=== PATIENT | male | born 1975 | race Caucasian/White ===

== ENCOUNTER 2016-09-30 06:28 | Emergency (ER) | payer MEDICAID ==
[~2016-09-30] VITALS: Ht 167.6 cm; Wt 82.6 kg
[2016-09-30 06:38] VITALS: Ht 167.6 cm; Wt 82.6 kg
[2016-09-30 07:49] LABS: ADD SCAN DIFF NO
[2016-09-30 07:55] LABS: BASOPHIL # 0.1 10^3/ul (0.0-0.1); BASOPHILS % 0.3 % (0.0-2.0); EOSINOPHILS # 0.2 10^3/ul (0.0-0.5); LYMPHOCYTES # 2.8 10^3/ul (0.8-2.9); LYMPHOCYTES % 18.3 % (15.0-51.0); MEAN CORPUSCULAR HEMOGLOBIN 31.6 pg (29.0-33.0); MEAN CORPUSCULAR HGB CONC 34.9 g/dl (32.0-37.0); MEAN CORPUSCULAR VOLUME 90.5 fl (82.0-101.0); MEAN PLATELET VOLUME 11.6 fl (7.4-10.4); MONOCYTE # 1.4 10^3/ul (0.3-0.9); NEUTROPHIL # 10.9 10^3/ul (1.6-7.5); NEUTROPHILS % 71.1 % (39.0-77.0); PLATELET COUNT 277 10^3/UL (140-415); RED BLOOD COUNT 4.75 10^6/ul (4.70-6.10); WHITE BLOOD COUNT 15.3 10^3/ul (4.8-10.8)
--- NOTE | 2016-09-30 07:56 | RADRPT ---
PROCEDURE: CT Abdomen and pelvis without contrast. CLINICAL INDICATION: Left flank pain TECHNIQUE: CT scan of the abdomen and pelvis with contrast was performed on a multidetector high-r esolution CT scan. . Coronal and sagittal reformatted images were obtained from the axial source i mages. Standard CT scan of the abdomen pelvis without contrast protocols were performed. The total exam CTDI equals 14.02 mGy and the total exam DLP equals in 65.53 mGy-cm. One or more of the following dose reduction techniques were used: - Automated exposure control. - Adjustment of the mA and/or kV according to patient size. Use of iterative reconstruction technique. COMPARISON: None FINDINGS: There is a 6 x 4 mm proximal left ureteral calculus resulting in moderate left hydroureter and mild left hydronephrosis. No other renal calcified calculi. No evidence of right hydronephrosis. No ev idence of intra renal masses bilaterally. The urinary bladder is contracted but otherwise unremarka ble. The prostate gland is mildly enlarged. The liver is mildly enlarged but no focal hepatic lesion s. The spleen, pancreas and adrenal glands are unremarkable. The gallbladder is unremarkable and t here is no evidence of biliary ductal dilation. The stomach, small bowel, large bowel and appendix a re unremarkable. Negative for intra-abdominal free fluid free air abscesses or lymphadenopathy. Th e lung bases are unremarkable. There are degenerative changes lower thoracic and lumbar spine. No acute osseous finding. No osteoblastic or osteolytic lesions. IMPRESSION: 1. 6 x 4 mm proximal left ureteral obstructing calculus resulting in moderate left proximal hydrour eter and mild left hydronephrosis. 2. No other calcified urinary calculi. Negative right obstructive uropathy. 3. Mild enlargement of the prostate gland. 4. Mild hepatomegaly without focal hepatic lesions. 5. No abdominal free air fluid abscesses or lymphadenopathy. RPTAT:AAJJ Physician [place] Date Time Electronically viewed and signed by Physician London on 09/30/2016 07:56 BM/
[2016-09-30] MEDS ORDERED: HYDR-906 PO (08:06)
[2016-09-30] MEDS ORDERED: TAMS-14 PO (08:06)
[2016-09-30] MEDS ORDERED: IBUP-1542 PO (08:06)
[2016-09-30 08:08] LABS: ADD UMIC YES; URINE BILIRUBIN (Dip) NEGATIVE (NEGATIVE); URINE BLOOD (Dip) 3+ (NEGATIVE); URINE COLOR LT. YELLOW (YELLOW); URINE GLUCOSE (Dip) NEGATIVE (NEGATIVE); URINE KETONES (Dip) NEGATIVE (NEGATIVE); URINE LEUKOCYTE ESTERASE (Dip) NEGATIVE (NEGATIVE); URINE NITRITE (Dip) NEGATIVE (NEGATIVE); URINE TOTAL PROTEIN (Dip) NEGATIVE (NEGATIVE); URINE UROBILINOGEN (Dip) 0.2 E.U./dL (0.1-1.0)
--- NOTE | 2016-09-30 08:13 | ERD ---
ER Documentation Chief Complaint Date/Time DATE: 09/30/16 TIME: 08:08 Chief Complaint INTERMITTENT LT FLANK PAIN X2 DAYS. TOOK TYLENOL [employer]ER AT 0500. HPI Patient is a 41-year-old male with past medical history of kidney stones (over 10 years ago) who presents to the emergency department with intermittent sided flank pain 2 days. Patient states that the pain is episodic in nature. Patient states that his pain is sharp and stabbing. The pain is localized to the left flank area. The pain does not radiate into his abdomen or his groin. Patient states his current pain level is a 7 out of 10. Patient last took Tylenol at 5 AM today. Patient denies any dysuria, urinary frequency, urgency or hematuria. Patient does report intermittent chills however he denies any fevers. Patient denies any chest pain, shortness of breath, nausea. Patient does admit to vomiting 1 today. No recent travel. No sick contacts. ROS All systems reviewed and are negative except as per history of present illness. Medications Home Meds Active Scripts Tamsulosin Hcl* (Flomax*) 0.4 Mg Cap.er.24h, 0.4 MG PO BID, #30 CAP Prov:LOLIS COTTRELL PA-C 09/30/16 Hydrocodone/Acetaminophen ([place] 5-325 Tablet) 1 Each Tablet, 1 TAB PO Q6H Y for PAIN, #10 TAB Prov:LOLIS COTTRELL PA-C 09/30/16 Ibuprofen* (Ibuprofen*) 600 Mg Tablet, 600 MG PO Q6, #20 TAB Prov:LOLIS COTTRELL PA-C 09/30/16 Allergies Allergies: Coded Allergies: No Known Allergy (Unverified , 09/30/16) PMhx/Soc Medical and Surgical Hx: pt denies Medical Hx, pt denies Surgical Hx Hx Miscellaneous Medical Probl: Yes (hx of kidney stones) Hx Alcohol Use: No Hx Substance Use: No Hx Tobacco Use: No Smoking Status: Never smoker Physical Exam Vitals Vital Signs Date Time Temp Pulse Resp B/P Pulse Ox O2 Delivery O2 Flow Rate FiO2 09/30/16 09:26 98.4 72 16 138/74 99 Room Air 09/30/16 06:38 98.4 91 16 152/87 97 Physical Exam GENERAL: Well-developed, well-nourished male. Appears in no acute distress. HEAD: Normocephalic, atraumatic. EYES: Pupils are equally reactive bilaterally. EOMs grossly intact. No conjunctival erythema. ENT: Moist mucous membranes. No uvula deviation. No kissing tonsils. NECK: Supple. No meningismus. Normal range of motion of the neck. LUNG: Clear to auscultation bilaterally. No rhonchi, wheezing, rales or coarse breath sounds. HEART: Regular rate and rhythm. No murmurs, rubs or gallops. ABDOMEN: No scars, ecchymosis or rashes noted. Soft, nontender, and nondistended. Positive bowel sounds in all four quadrants. No rebound tenderness , no guarding. (-) McBurney's point tenderness. Left CVA tenderness. BACK: No midline tenderness. EXTREMITIES: Equal pulses bilaterally. No peripheral clubbing, cyanosis or edema. No unilateral leg swelling. NEUROLOGIC: Alert and oriented. Moving all four extremities without any difficulty. Normal speech. Steady gait. SKIN: Normal color. Warm and dry. No rashes or lesions. Result Diagram: 09/30/16 0744 09/30/16 0744 Results 24 hrs Laboratory Tests Test 09/30/16 07:44 Alanine Aminotransferase (ALT/SGPT) 34IU/L Albumin 4.7g/dl Albumin/Globulin Ratio 1.38 Alkaline Phosphatase 73IU/L Anion Gap 21 Aspartate Amino Transf (AST/SGOT) 33IU/L Basophils # 0.110^3/ul Basophils % 0.3% Blood Urea Nitrogen 14mg/dl Calcium Level 9.5mg/dl Carbon Dioxide Level 28mmol/L Chloride Level 102mmol/L Creatinine 1.49mg/dl Direct Bilirubin 0.00mg/dl Eosinophils # 0.210^3/ul Eosinophils % 1.0% Globulin 3.40g/dl Glucose Level 101mg/dl Hematocrit 43.0% Hemoglobin 15.0g/dl Indirect Bilirubin 0.9mg/dl Lipase 27U/L Lymphocytes # 2.810^3/ul Lymphocytes % 18.3% Mean Corpuscular Hemoglobin 31.6pg Mean Corpuscular Hemoglobin Concent 34.9g/dl Mean Corpuscular Volume 90.5fl Mean Platelet Volume 11.6fl Monocytes # 1.410^3/ul Monocytes % 9.0% Neutrophils # 10.910^3/ul Neutrophils % 71.1% Nucleated Red Blood Cells # 0.010^3/ul Nucleated Red Blood Cells % 0.0/100WBC Platelet Count 14231^3/UL Potassium Level 4.9mmol/L Red Blood Count 4.7510^6/ul Red Cell Distribution Width 12.0% Sodium Level 146mmol/L Total Bilirubin 0.9mg/dl Total Protein 8.1g/dl Urine Bacteria FEW Urine Bilirubin NEGATIVE Urine Clarity CLEAR Urine Color LT. YELLOW Urine Epithelial Cells FEW Urine Glucose NEGATIVE% Urine Hemoglobin 3+ Urine Ketones NEGATIVE Urine Leukocyte Esterase NEGATIVE Urine Microscopic RBC 2-5/HPF Urine Microscopic WBC NONE SEEN/HPF Urine Nitrite NEGATIVE Urine Specific [place] 1.010 Urine Total Protein NEGATIVE Urine Urobilinogen 0.2 E.U./dL Urine pH 6.0 White Blood Count 15.310^3/ul Procedures/MDM ED COURSE: The patient was stable throughout ED course. I kept the patient and/or family informed of laboratory and diagnostic imaging results throughout the ED course. Patient was offered analgesics and IV fluids while pending blood work and imaging studies. However he declined. Patient stated that his pain was currently under control. Patient was advised to notify myself or nursing staff of his pain increased. DIAGNOSTIC IMAGING: Read by radiologist. DIAGNOSTIC IMAGING REPORT Patient: RAJWINDER MELCHOR : 1975 Age: 41 Sex: M [id number] DOS: 09/30/16 0724 Ordering MD: LOLIS COTTRELL PA-C Location: [facility] Room/Bed: PROCEDURE: CT Abdomen and pelvis without contrast. CLINICAL INDICATION: Left flank pain TECHNIQUE: CT scan of the abdomen and pelvis with contrast was performed on a multidetector high-resolution CT scan. . Coronal and sagittal reformatted images were obtained from the axial source images. Standard CT scan of the abdomen pelvis without contrast protocols were performed. The total exam CTDI equals 14.02 mGy and the total exam DLP equals in 65.53 mGy- cm. One or more of the following dose reduction techniques were used: - Automated exposure control. - Adjustment of the mA and/or kV according to patient size. Use of iterative reconstruction technique. COMPARISON: None FINDINGS: There is a 6 x 4 mm proximal left ureteral calculus resulting in moderate left hydroureter and mild left hydronephrosis. No other renal calcified calculi. No evidence of right hydronephrosis. No evidence of intra renal masses bilaterally. The urinary bladder is contracted but otherwise unremarkable. The prostate gland is mildly enlarged. The liver is mildly enlarged but no focal hepatic lesions. The spleen, pancreas and adrenal glands are unremarkable. The gallbladder is unremarkable and there is no evidence of biliary ductal dilation. The stomach, small bowel, large bowel and appendix are unremarkable. Negative for intra-abdominal free fluid free air abscesses or lymphadenopathy. The lung bases are unremarkable. There are degenerative changes lower thoracic and lumbar spine. No acute osseous finding. No osteoblastic or osteolytic lesions. IMPRESSION: 1. 6 x 4 mm proximal left ureteral obstructing calculus resulting in moderate left proximal hydroureter and mild left hydronephrosis. 2. No other calcified urinary calculi. Negative right obstructive uropathy. 3. Mild enlargement of the prostate gland. 4. Mild hepatomegaly without focal hepatic lesions. 5. No abdominal free air fluid abscesses or lymphadenopathy. RPTAT:AAJJ Physician [place] Date Time Electronically viewed and signed by Physician London on 09/30/2016 07:56 BM/ CC: LOLIS COTTRELL PA-C MEDICAL DECISION MAKING: This is a 41-year-old male with past medical history of kidney stones who presents emergency department with left-sided flank pain 2 days. Vital signs were reviewed. Patient was afebrile. Patient was noted to have white count of 15.3. Patient's creatinine was noted to be elevated at 1.49. Urine analysis showed 3+ hematuria, no microscopic WBCs, negative leukocyte esterase, negative nitrites. CT of the abdomen and pelvis showed 1. 6 x 4 mm proximal left ureteral obstructing calculus resulting in moderate left proximal hydroureter and mild left hydronephrosis. No other calcified urinary calculi. Negative right obstructive uropathy. Mild enlargement of the prostate gland. Mild hepatomegaly without focal hepatic lesions. No abdominal free air fluid abscesses or lymphadenopathy. Given these findings, the patient's presentation is most consistent with nephrolithiasis. I have a much lower clinical concern for UTI, pyelonephritis, appendicitis, diverticulitis, constipation, urethritis , prostatitis. Low suspicion for infected stone. PRESCRIPTIONS: [place] Ibuprofen Tamsulosin DISCHARGE: At this time, patient is stable for discharge and outpatient management. Discussed the patient's CT findings and lab work including elevated creatinine level and white count with my supervising physician . Dr. Olivera any agrees that the patient is stable for discharge. Patient will need to follow-up with the urologist for further management of his symptoms. I have instructed the patient to follow-up with his/her primary care physician in 1-2 days. If symptoms persist, patient may need to see a specialist for further examinations and testing. I have instructed the patient to promptly return to the ER at any time for any new or worsening symptoms including increased increased pain, fever, nausea, vomiting, urinary changes or weakness. The patient and/or family expressed understanding of and agreement with this plan. All questions were answered. Home care instructions were provided. Departure Diagnosis: Primary Impression: Nephrolithiasis Condition: Stable Patient Instructions: Kidney Stone W/ Colic Referrals: NO PRIMARY,CARE PHYSICIAN (PCP) FORREST CHEN MD,JUHI BRAVO,LB CANALES,ENMA BENITEZ,SIA LAWS,JACKIE MENDOZA,MIAN MARTE MD= [facility] YOU HAVE RECEIVED A MEDICAL SCREENING EXAM AND THE RESULTS INDICATE THAT YOU DO NOT HAVE A CONDITION THAT REQUIRES URGENT TREATMENT IN THE EMERGENCY DEPARTMENT. FURTHER EVALUATION AND TREATMENT OF YOUR CONDITION CAN WAIT UNTIL YOU ARE SEEN IN YOUR DOCTORS OFFICE WITHIN THE NEXT 1-2 DAYS. IT IS YOUR RESPONSIBILITY TO MAKE AN APPOINTMENT FOR FOLOW-UP CARE. IF YOU HAVE A PRIMARY DOCTOR --you should call your primary doctor and schedule an appointment IF YOU DO NOT HAVE A PRIMARY DOCTOR YOU CAN CALL OUR PHYSICIAN REFERRAL HOTLINE AT IF YOU CAN NOT AFFORD TO SEE A PHYSICIAN YOU CAN CHOSE FROM THE FOLLOWING [facility] [address] [facility] [address] [facility] [facility] [address] [facility] [address] [facility]. [facility] [address] [facility] [facility]. [address] [facility]. [facility] YOU HAVE RECEIVED A MEDICAL SCREENING EXAM AND THE RESULTS INDICATE THAT YOU DO NOT HAVE A CONDITION THAT REQUIRES URGENT TREATMENT IN THE EMERGENCY DEPARTMENT. FURTHER EVALUATION AND TREATMENT OF YOUR CONDITION CAN WAIT UNTIL YOU ARE SEEN IN YOUR DOCTORS OFFICE WITHIN THE NEXT 1-2 DAYS. IT IS YOUR RESPONSIBILITY TO MAKE AN APPOINTMENT FOR FOLOW-UP CARE. IF YOU HAVE A PRIMARY DOCTOR --you should call your primary doctor and schedule and appointment IF YOU DO NOT HAVE A PRIMARY DOCTOR YOU CAN CALL OUR PHYSICIAN REFERRAL HOTLINE AT . IF YOU CAN NOT AFFORD TO SEE A PHYSICIAN YOU CAN CHOSE FROM THE FOLLOWING [facility] INSTITUTIONS: [facility] [address] [place] [address] [facility] [address] [place] [address] [facility] [address] [place] [address] Additional Instructions: Patient advised to drink plenty of fluids. Patient advised to take medication as prescribed. Patient will need to follow-up with a urologist for further management of his kidney stones. Patient also need to follow-up with the urologist for enlarged prostate. Patient provided with a copy of all blood work and imaging studies today. Call your primary care doctor TOMORROW for an appointment during the next 1-2 days.See the doctor sooner or return here if your condition worsens before your appointment time. LOLIS COTTRELL PA-C Sep 30, 2016 08:13 LOLIS COTTRELL PA-C Sep 30, 2016 08:13
[2016-09-30 08:26] LABS: ALBUMIN 4.7 g/dl (3.3-4.9)
[2016-09-30 08:27] LABS: POTASSIUM 4.9 mmol/L (3.5-5.1)
[2016-09-30 08:29] LABS: ALBUMIN/GLOBULIN RATIO 1.38; BILIRUBIN,INDIRECT 0.9 mg/dl (0-1.1); BILIRUBIN,TOTAL 0.9 mg/dl (0.2-1.3); CREATININE 1.49 mg/dl (0.61-1.24); TOTAL PROTEIN 8.1 g/dl (6.1-8.1)
[2016-09-30 08:30] LABS: CALCIUM 9.5 mg/dl (8.4-10.2)
[2016-09-30 08:46] LABS: BACTERIA,URINE FEW
[2016-09-30 09:26] VITALS: BP 138/74; PULSE 72; RESP 16; TEMP 98.4
== END 2016-09-30 09:26 | disposition home or self-care (01) ==
LOC: FTE 06:28
DX: N20.0 Calculus of kidney (principal)
CPT/HCPCS: 36415; 74176; 80053; 81001; 83690; 85025; Z7502; 81003